=== PATIENT | male | born 1990 | race African-American/Black ===

== ENCOUNTER 2021-12-10 22:19 | Emergency (ER) | payer SELFPAY ==
--- NOTE | 2021-12-10 23:29 | ED Physician Documentation ---
PD HPI MALE - Stated complaint Stated Complaint: MALE - Chief complaint Chief Complaint: General - History obtained from History obtained from: Patient - History of Present Illness Timing - onset: Other (asymptomatic) Associated symptoms: No: Dysuria, Urinary frequency, Discharge PD HPI MALE CONTRIB FACTORS: Sexually active, Exposed to STD - Additional information Additional information: patient was contacted earlier today by one of his recent sexual partners and was told by this person that they tested positive yesterday for trichomoniasis. Patient presents requesting STD testing and whatever treatment is appropriate. He is asymptomatic. Review of Systems Constitutional: denies: Fever : denies: Dysuria, Frequency, Discharge Skin: denies: Rash, Lesions PD PAST MEDICAL HISTORY - Past Medical History Past Medical History: No Cardiovascular: None Respiratory: None Neuro: None Endocrine/Autoimmune: None GI: None : None HEENT: None Psych: None Musculoskeletal: None Derm: None - Past Surgical History Past Surgical History: No - Present Medications Home Medications: Ambulatory Orders Medication Instructions Recorded Confirmed No Known Home Medications 12/10/21 12/10/21 - Allergies Allergies/Adverse Reactions: Allergies Allergy/AdvReac Type Severity Reaction Status Date / Time No Known Drug Allergies Allergy Verified 12/10/21 22:41 - Social History Does the pt smoke?: Yes Smoking Status: Current every day smoker Does the pt drink ETOH?: Yes Does the pt have substance abuse?: No - POLST Patient has POLST: No PD ED PE NORMAL - Vitals Vital signs reviewed: Yes - General General: Alert and oriented X 3 - Abdomen Abdomen: Soft, Non tender - Back Back: No CVA TTP Results - Vitals Vitals: Vital Signs - 24 hr 12/10/21 12/11/21 12/11/21 22:39 00:27 00:47 Temperature 36.8 C Heart Rate 70 73 80 Respiratory 15 16 17 Rate Blood Pressure 140/61 H 124/83 H 133/87 H O2 Saturation 100 100 99 Oxygen O2 Source Room air PD MEDICAL DECISION MAKING - ED course Complexity details: considered differential, d/w patient ED course: patients chief concern is recent exposure to a female partner who just yesterday tested positive for trichomoniasis. He has no lesions (penile), discharge, or dysuria. According to [facility]odate, with this recent exposure and considering that many male patients will be asymptomatic, as well as the challenge of obtaining a test and the accuracy of said test for trichomoniasis, it is reasonable to treat with one-time dose of flagyl (2 grams), and this is given in ED along with 4mg TL zofran (to minimize potential for nausea with such a high dose) Departure - Departure Disposition: 01 Home, Self Care Clinical Impression: Exposure to STD Condition: Good Instructions: ED Screening Exam Medical Nonurgent Comments: While you do not have any symptoms at this time, since you have been recently exposed to trichomoniasis (which is a sexually transmitted infection), you were given a one-time dose of the appropriate antibiotic (along with an anti-nausea medication). This is the same treatment that is recommended after such an exposure to trichomoniasis whether you are having symptoms or not Discharge Date/Time: 12/11/21 00:48
[2021-12-11] MEDS ORDERED: ONDANSETRON ODT 4 MG TABLET TL STA (00:16)
[2021-12-11] MEDS ORDERED: metroNIDAZOLE 250 MG TABLET PO STA (00:16)
[2021-12-11 00:48] VITALS: BP 133/87
== END 2021-12-11 00:48 | disposition home or self-care (01) ==
LOC: ED 22:19
DX: Z20.2 Contact with and (suspected) exposure to infections with a predominantly sexual mode of transmission (principal); F17.200 Nicotine dependence, unspecified, uncomplicated
CPT/HCPCS: 99282; 99283; A9270; Q0162